=== PATIENT | female | born 1965 | race Caucasian/White ===

== ENCOUNTER 2018-11-19 10:34 | Day surgery (SDC) | payer OTHER ==
[2018-11-19] MEDS ORDERED: HYDROCORTISONE 100 MG INJ IV (13:40)
== END 2018-11-19 15:32 | disposition home or self-care (01) ==
LOC: GIL 10:34
DX: R19.4 Change in bowel habit (principal); K64.8 Other hemorrhoids; D12.3 Benign neoplasm of transverse colon; J45.909 Unspecified asthma, uncomplicated
CPT/HCPCS: 45385; 88305